=== PATIENT | male | born 1940 | race Caucasian/White ===

== ENCOUNTER 2021-04-11 18:57 | Emergency (ER) | payer MEDICARE, SELFPAY ==
[2021-04-11 19:06] VITALS: BP 144/56; PULSE 82; RESP 20; TEMP 36.6; O2SAT 100
--- NOTE | 2021-04-11 19:34 | ED.DENTAL ---
HPI - Dental/Oral General Chief complaint: Dental/Oral Stated complaint: Toothache Time Seen by Provider: 04/11/21 19:34 Source: patient and RN notes reviewed Mode of arrival: ambulatory Limitations: no limitations History of Present Illness HPI Narrative: 80-year-old male presents to the [facility] with an abscess to the left upper gum. Has a dentist that has been doing crowns. Poor dentition, Related Data Home Medications Medication Instructions Recorded Confirmed amlodipine 5 mg PO DAILY 04/11/21 04/11/21 aspirin [Adult Low Dose Aspirin] 81 mg PO DAILY 04/11/21 04/11/21 clopidogrel 75 mg PO DAILY 04/11/21 04/11/21 ezetimibe 10 mg PO DAILY 04/11/21 04/11/21 hydrochlorothiazide 12.5 mg PO Q48H 04/11/21 04/11/21 irbesartan 150 mg PO DAILY 04/11/21 04/11/21 isosorbide mononitrate 30 mg PO DAILY 04/11/21 04/11/21 metoprolol succinate 100 mg PO DAILY 04/11/21 04/11/21 nitroglycerin 0.4 mg SUBLINGUAL TID PRN 04/11/21 04/11/21 rosuvastatin 40 mg PO DAILY 04/11/21 04/11/21 tamsulosin 0.4 mg PO HS 04/11/21 04/11/21 Allergies Allergy/AdvReac Type Severity Reaction Status Date / Time No Known Allergies Allergy Verified 04/11/21 19:25 Review of Systems Review of Systems: All systems reviewed & are unremarkable except as noted in HPI and below Constitutional: Constitutional: Reports no additional constitutional complaints, Denies chills and Denies fever(s) Eyes: Eyes: Reports no additional eye complaints ENT: Reports as per HPI Comments: Left upper dental abscess Cardiovascular: Cardiovascular: Reports no additional cardiovascular complaints Respiratory: Respiratory: Reports no additional respiratory complaints Musculoskeletal: Musculoskeletal: Reports no additional musculoskeletal complaints and Denies myalgias Integumentary/Breasts: Skin/Breast: Reports system reviewed and no additional complaints, except as docu Neurologic: Reports system reviewed and no additional complaints, except as documented Psychiatric: Psychiatric: Reports no additional psychiatric complaints Allergic/Immunologic: Allergic/Immunologic: Reports no additional allergic/immunologic complaints REPLACED BY [facility] Past Medical History Medical History (Updated 04/11/21 @ 20:08 by Mine Gomez) High cholesterol Hypertension Surgical History Surgical History (Updated 04/11/21 @ 20:08 by Mine Gomez) Hx of cholecystectomy S/P triple vessel bypass Social History Social History (Updated 04/11/21 @ 20:09 by Mine Gomez) Smoking status: Former smoker Tobacco type: cigarettes Living arrangements: with family Comments At the time of my signature, I reviewed and agree with the nursing past medical, surgical, social, and family history. There is no relevant family history pertinent to the patient complaint. Exam Const: General: no acute distress, alert and ill appearing chronically Orientation/consciousness: patient oriented x3 Limitations: no limitations HENMT: Head: normal to inspection Teeth image: 1. 1 cm x 1 cm fluctuant abscess noted. Throat: posterior oropharynx normal Neck: Neck: normal visual inspection, no lymphadenopathy and no meningeal signs Chest: Chest palpation & inspection: normal inspection of the chest Resp: Effort & Inspection: normal respiratory effort Auscultation: clear to auscultation bilaterally Cardio: Rate: regular rate Rhythm: regular rhythm Back/Spine/Pelvis: Back: no CVA tenderness Skin: General skin exam: normal color Rashes: no rashes Neuro: General: patient oriented x3, moves all extremities, no meningeal signs and no focal motor deficits Speech: normal speech Gait exam (Neuro): Normal gait present Extrem: General: normal to inspection Psych: Appearance: grossly normal and well kempt Mental Status: mental status grossly normal Affect: normal affect Attitude: cooperative Thought content: Yes Normal thought content present Course Course Emergency Course: Discharge ins
== END 2021-04-11 19:50 | disposition home or self-care (01) ==
PROVIDERS: Emergency Provider Nurse Practitioner; PCP Internal Medicine
DX: K05.319 Chronic periodontitis, localized, unspecified severity (principal); E78.00 Pure hypercholesterolemia, unspecified; I10 Essential (primary) hypertension; Z87.891 Personal history of nicotine dependence
CPT/HCPCS: 41800; 87070; 87205; 99203; G0463